=== PATIENT | female | born 1950 | race Caucasian/White ===

== ENCOUNTER → 2016-09-22 | Outpatient (CLI) | payer OTHER ==
[~2016-09-22] MED LIST: APPLTAB2 PO; ASPI81TA28 PO; B-COTAB18 PO; CALC-388 PO; CHOL20007 PO; CINN500T PO; COEN1CAP37 PO; CYCL10TA6 PO; DIGE1CAP10 PO; FURO-85 PO; IBUP-1451 PO; LINA1TAB PO; LVMIPEN SQ; METF500T5 PO; NVLGI/PEN SQ; NVLGIPEN SQ; OMEG120013 PO; OXYC-57 PO; POTA99TA PO
--- NOTE | 2016-09-22 12:48 | DIAGNOSTIC IMAGING REPORT ---
MRI OF THE CERVICAL SPINE WITHOUT CONTRAST CLINICAL HISTORY: Cervical pain with radiculopathy COMPARISON: None TECHNIQUE: Utilizing a 1.5 Mariaa magnet and dedicated coil, multiplanar, multiecho imaging of the cervical spine was performed without IV contrast. FINDINGS: Alignment of the cervical spine is anatomic. Vertebral body heights are maintained. There is no suspicious marrow replacement. There is no intracanalicular mass or fluid collection. There is a possible small focus of increased T2 signal within the right aspect of the cord at the C4-C5 level. Otherwise, cervical cord signal is normal. C2-C3: Central canal and neural foramen are patent. C3-C4: There is minimal disc bulge. Central canal and neural foramen are patent. C4-C5: There is mild posterior disc osteophyte complex with ligamentous hypertrophy. There is mild to moderate narrowing of the central canal. This slightly indents the ventral aspect of the cord. There is moderate to severe bilateral neural foraminal stenosis, slightly greater on the right. C5-C6: There is mild posterior disc osteophyte complex. There is mild narrowing of the central canal. Neural foramen are patent. C6-C7: There is mild posterior disc osteophyte complex with mild narrowing of the central canal. Neural foramen are patent. C7-T1: The central canal and neural foramen are patent. IMPRESSION: 1. Posterior disc osteophyte complex with mild to moderate central canal stenosis at C4-C5. Possible mild cord signal abnormality at this level which may reflect myelomalacia or less likely cord edema. 2. Mild central canal stenosis at C5-C6 and C6-C7. 3. Moderate to severe bilateral neural foraminal stenosis at C4-5. Electronically signed by: Stephen Francis M.D. 09/22/2016 12:46 PM Dictated Date/Time: 09/22/2016 12:34 PM
== END | disposition home or self-care (01) ==
LOC: C.MRI 11:38
PROVIDERS: ATTEND Orthopaedic Surgery Orthopaedic Surgery of the Spine
DX: M54.2 Cervicalgia (principal); M25.78 Osteophyte, vertebrae; M99.71 Connective tissue and disc stenosis of intervertebral foramina of cervical region

== ENCOUNTER 2016-10-31 05:19 | Inpatient (IN) | payer OTHER ==
[2016-10-16 12:17] VITALS: BMI 35.0
[~2016-10-31] VITALS: Ht 157.5 cm; Wt 132.0 kg
[2016-10-31] VITALS (18 sets, daily range): BP systolic 103–158; BP diastolic 67–88; PULSE 66–83; TEMP 36.2–37; O2SAT 93–99; BMI 53.0
[~2016-10-31 05:19] MED LIST changes: -OXYC-57 PO
[2016-10-31] MEDS ORDERED: CEFAZOLIN 2000 MG/60 ML D5W IV SCH (06:00)
[2016-10-31] MEDS ORDERED: LACTATED RINGER'S 1000ML 1,000 ML IV SCH (06:00)
[2016-10-31] MEDS ORDERED: PREGABALIN 75 MG CAP PO SCH (06:00)
[2016-10-31] MEDS ORDERED: CeleBREX 200 MG CAP PO SCH (06:00)
[2016-10-31] MEDS ORDERED: FENTANYL CITRATE INJ 50 MCG/1 ML 2 ML VIAL ONE ×2 (06:49→08:34)
[2016-10-31] MEDS ORDERED: MIDAZOLAM HCL 1 MG/ML 2ML VIAL ONE (06:49)
[2016-10-31] MEDS ORDERED: PROPOFOL IV EMULSION 10 MG/ML 100 ML VIAL IV ONE (06:53)
[2016-10-31] MEDS ORDERED: REMIFENTANIL 1 MG VIAL ONE ×2 (06:55→08:39)
[2016-10-31] MEDS ORDERED: CEFAZOLIN 3000 MG/65 ML D5W IV SCH (07:00)
[2016-10-31] MEDS ORDERED: BACITRACIN 50000 UNIT VIAL ONE (07:02)
[2016-10-31] MEDS ORDERED: THROMBIN 5000 UNITS KIT ONE (07:02)
--- NOTE | 2016-10-31 07:28 | History and Physical ---
History & Physical Date Oct 31, 2016. Chief Complaint neck pain and bilateral hand numbness. History of Present Illness The patient is a 65 year old female with complaints of above that are long standing with known cervical stenosis/myelomalacia and progressive numbness. 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 She has had longstanding symptoms and seen it deteriorate. she has weakness and loss of pump tester in L hand. Her balance has also started to diminish. She was seen by cardiology preop and was cleared by stress test for inducible ischemia 06/07. Past Medical/Surgical History CAD s/p cardiac cath GUILLE no CPAP diabetes type II OA hx TIA CTR Obesity hiatal hernia lumbar surgery hyster hernia repair helena Appy Additional History Hepatic Disease: No Endocrine Disorder: No Kidney Disease: No Hypertension: No Heart Disease: Yes Bleeding Tendencies: No Infectious Diseases: No Allergies Coded Allergies: Codeine (Verified Allergy, Mild, VOMITTING, 10/31/16) Dexamethasone (Verified Allergy, Mild, DIZZINESS, 10/31/16) Meperidine (Verified Allergy, Mild, VOMITTING, 10/31/16) Morphine (Verified Allergy, Mild, VOMITTING, 10/31/16) Chlorhexidine (Verified Adverse Reaction, Intermediate, RASH, ITCHY, ) Uncoded Allergies: TAPE (Allergy, Mild, RASH, 10/16/16) Home Medications Scheduled Apple Cider Vinegar-Green Tea- (Apple Cider Vinegar Plus), 2 CAP PO TID Aspirin (Aspirin Ec), 81 MG PO QAM B-Complex Vitamins (Vitamin B Complex), 1 TAB PO BID Calcium Carbonate-Vitamin D (Calcium + D3 600-200 mg-Unit), 1 TAB PO BID Cholecalciferol (Vitamin D3), 1 TAB PO BID Cinnamon (Cinnamon), 2,000 CAP PO BID Coenzyme Q10 (Ubidecarenone) (Co Q-10), 1 CAP PO QAM Digestive Enzymes (Digestive Enzyme), 1 CAP PO HS Furosemide (Lasix), 20 MG PO QPM Insulin Aspart (Novolog Flexpen), 28 UNIT SQ QPM Insulin Aspart (Novolog Flexpen), 18 UNIT SQ QAM Insulin Detemir (Levemir Flextouch), 50 UNIT SQ QPM Linagliptin (Tradjenta), 1 TAB PO QPM Metformin Hcl Er (Glucophage Er), 1,000 MG PO BID Henderson-3 Fatty Acids (Fish Oil), 1 CAP PO TID Potassium (Potassium), 1 TAB PO QPM Scheduled PRN Cyclobenzaprine Hcl (Flexeril), 10 MG PO HS PRN for Pain Ibuprofen Tab (Motrin), 800 MG PO TID PRN for Pain Physical Examination Skin: warm/dry Eyes: normal inspection, sclerae normal ENT: normal ENT inspection Head: normocephalic, atraumatic Neck: supple, trachea midline Respiratory/Chest: lungs clear, no respiratory distress Cardiovascular: regular rate, rhythm Extremities: normal inspection, normal range of motion Neurologic/Psych: alert, normal reflexes, oriented x 3 Addiitonal Comments: LUE demonstrates weakness in pump tester and wrist extension, she has decreased sensation to lt tch L hand stocking like, less so on right hand Diagnosis Cervical stenosis with myelomalacia C4-5 and cervical myelopathy with progressive symptoms Plan of Treatment C4-5 ACDF
[2016-10-31] MEDS ORDERED: EpHEDrine SULFATE INJ 50 MG/ML AMP IV PRN (08:00)
[2016-10-31] MEDS ORDERED: ATROPINE SULFATE 0.1 MG/ML 5ML SYR IV PRN (08:00)
[2016-10-31] MEDS ORDERED: PHENYLEPHRINE 100MCG/ML 5ML SYR IV PRN (08:00)
[2016-10-31] MEDS ORDERED: HYDROmorphone INJ 2 MG/ML SYR/VIAL IV PRN (08:00)
[2016-10-31] MEDS ORDERED: ONDANSETRON INJ 2 MG/ML 2 ML VIAL IV PRN (08:00)
[2016-10-31] MEDS ORDERED: HYDROmorphone INJ 2 MG/ML SYR/VIAL ONE (08:34)
[2016-10-31] MEDS ORDERED: ONDANSETRON INJ 2 MG/ML 2 ML VIAL ONE ×2 (08:54→10:39)
[2016-10-31] MEDS ORDERED: DEXAMETHASONE SOD INJ 4 MG/ML VIAL ONE (08:54)
[2016-10-31] MEDS ORDERED: LIDOCAINE HCL 2% 2 ML VIAL (20MG/ML) ONE (08:54)
[2016-10-31] MEDS ORDERED: PROPOFOL IV EMULSION 10 MG/ML 20 ML VIAL IV ONE (08:54)
[2016-10-31] MEDS ORDERED: RANITIDINE HCL 25 MG/ML INJ ONE (08:54)
[2016-10-31] MEDS ORDERED: SUCCINYLCHOLINE CHLORIDE 20 MG/ML 10 ML VIAL IV ONE (08:54)
[2016-10-31] MEDS ORDERED: FLOSEAL HEMOSTATIC MATRIX 5ML TOP ONE (09:06)
--- NOTE | 2016-10-31 09:38 | [facility] Post Operative Brief Note ---
Immediate Operative Summary Operative Date Oct 31, 2016. Pre-Operative Diagnosis Cervical stenosis with myelomalacia C4-5 and cervical myelopathy with progressive symptoms Post-Operative Diagnosis Cervical stenosis with myelomalacia C4-5 and cervical myelopathy with progressive symptoms Procedure(s) Performed C4-C5 Anterior Cervical Discectomy and Fusion, Peek, Allograft Surgeon Dr. Uli Saini [employer] Executive Surgeon(s) Savage Hidalgo PA-C Estimated Blood Loss 10 cc Findings dict Specimens None per surgeon
[2016-10-31] MEDS ORDERED: HYDROmorphone INJ 0.5 MG/0.5 ML SYR IV PRN (09:45)
[2016-10-31] MEDS ORDERED: ACETAMINOPHEN IV 1,000 MG in EMPTY BAG 0 ML IV PRN (09:45)
[2016-10-31] MEDS ORDERED: NALOXONE HCL 0.4 MG/1 ML VIAL/CARP IV PRN (09:45)
[2016-10-31] MEDS ORDERED: RACEPINEPHRINE 2.25% NEBU SOLN 0.5 ML VIAL INH PRN (09:45)
[2016-10-31] MEDS ORDERED: OXYCODONE/ACETAMINOPHEN 5-325 TAB PO PRN (09:45)
[2016-10-31] MEDS ORDERED: NovoLIN-R INSULIN PER UNIT CHARGE ONE (09:46)
--- NOTE | 2016-10-31 09:58 | DIAGNOSTIC IMAGING REPORT ---
CERVICAL 2 OR 3 VIEWS CLINICAL HISTORY: C4-C5 ANTERIOR CERVICAL DISCECTOMY/FUSION COMPARISON STUDY: MRI the cervical spine September 22, 2016. Fluoroscopy time: 7 seconds. FINDINGS: 2 intraoperative fluoroscopic images demonstrate a C4-C5 anterior discectomy and fusion. Hardware appears intact. There are no unexpected radiopaque foreign bodies. IMPRESSION: Expected findings following C4-C5 anterior discectomy and fusion. Electronically signed by: Stephen Francis M.D. 10/31/2016 9:56 AM Dictated Date/Time: 10/31/2016 9:55 AM
[2016-10-31] MEDS ORDERED: EpHEDrine SULFATE 50MG/5ML SYR ONE (10:39)
[2016-10-31] MEDS ORDERED: LABETALOL HCL IV 5 MG/ML 20ML IV ONE (10:39)
[2016-10-31] MEDS ORDERED: PHENYLEPHRINE 100MCG/ML 5ML SYR ONE (10:39)
--- NOTE | 2016-10-31 11:17 | Anesthesiology Progress Note ---
Anesthesia Post Op Note Date & Time Oct 31, 2016 at 11:17 Vital Signs Pain Intensity: 0 Vital Signs Past 12 Hours Date Time Temp Pulse Resp B/P Pulse Ox O2 Delivery O2 Flow Rate FiO2 10/31/16 10:46 77 20 96 10/31/16 10:46 77 20 10/31/16 10:45 157/87 10/31/16 10:41 76 19 10/31/16 10:41 76 19 96 10/31/16 10:40 157/82 10/31/16 10:36 78 18 93 10/31/16 10:36 78 18 10/31/16 10:35 153/82 10/31/16 10:33 77 19 10/31/16 10:33 76 19 95 10/31/16 10:30 153/92 10/31/16 10:28 79 20 10/31/16 10:28 79 20 94 10/31/16 10:25 165/88 10/31/16 10:23 78 18 10/31/16 10:23 78 18 97 10/31/16 10:20 156/83 10/31/16 10:18 81 22 10/31/16 10:18 82 22 96 10/31/16 10:17 79 22 97 10/31/16 10:17 79 22 10/31/16 10:15 157/84 10/31/16 10:14 36.0 81 21 157/84 97 Nasal Cannula 2 10/31/16 10:12 83 20 95 10/31/16 10:12 81 20 10/31/16 10:11 77 19 10/31/16 10:11 77 19 96 10/31/16 10:10 162/87 10/31/16 10:06 78 22 97 10/31/16 10:06 78 22 10/31/16 10:05 161/88 10/31/16 10:01 77 20 10/31/16 10:01 77 20 97 10/31/16 10:00 163/84 10/31/16 09:56 78 21 10/31/16 09:56 78 21 100 10/31/16 09:55 164/87 10/31/16 09:51 77 21 10/31/16 09:51 77 21 99 10/31/16 09:50 165/88 10/31/16 09:48 78 21 99 10/31/16 09:48 78 21 10/31/16 09:45 165/90 10/31/16 09:44 164/89 10/31/16 09:43 76 22 10/31/16 09:43 76 22 99 10/31/16 09:40 178/101 10/31/16 09:38 77 19 99 10/31/16 09:38 78 19 10/31/16 09:35 173/98 10/31/16 09:33 77 20 10/31/16 09:33 78 20 98 10/31/16 09:30 183/101 10/31/16 09:29 181/100 10/31/16 09:28 79 20 181/101 94 10/31/16 09:28 36.0 77 16 181/101 93 Mask 10 10/31/16 09:28 79 20 10/31/16 06:06 36.5 83 20 158/88 97 Room Air Notes Mental Status: alert / awake / arousable, participated in evaluation Pt Amnestic to Procedure: Yes Nausea / Vomiting: adequately controlled Pain: adequately controlled Airway Patency, RR, SpO2: stable & adequate BP & HR: stable & adequate Hydration State: stable & adequate Anesthetic Complications: no major complications apparent
[2016-10-31] MEDS ORDERED: ACETAMINOPHEN 500 MG TAB PO ONE (12:18)
[2016-10-31] MEDS: SODIUM CHLORIDE 0.9% 1000ML 1,000 ML IV SCH ×2 (12:35→23:30)
[2016-10-31] MEDS ORDERED: INFLUENZA VIRUS QUAD VACCINE 0.5 ML SYR IM. ONE (12:45)
[2016-10-31] MEDS ORDERED: INFLUENZA ADMINISTRATION CHARGE ONE (12:45)
[2016-10-31] MEDS ORDERED: HYDROmorphone INJ 1 MG/ML SYR IV PRN (12:45)
[2016-10-31] MEDS ORDERED: METOCLOPRAMIDE HCL INJ 5 MG/ML 2 ML VIAL IV PRN (13:00)
--- NOTE | 2016-10-31 13:05 | Medical Consult ---
Consultation Date of Consultation: Oct 31, 2016. Attending Physician: Uli Sosa M.D. Reason for Consultation: Medical Management History of Present Illness Patient is a 65 y.o F PMHx of GUILLE, morbid obesity and DMII who presented to [facility] on 10/31/16 for elective C4-C5 Anterior Cervical Discectomy and Fusion with Dr. Sosa. Patient had procedure without complications and transferred to medical floors. 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 Patient denies any chest pain, SOB, dizziness, abdominal pain. Patient dose state she has nausea and headache post-op. Social History Smoking Status: Never Smoker Allergies Coded Allergies: Codeine (Verified Allergy, Mild, VOMITTING, 10/31/16) Dexamethasone (Verified Allergy, Mild, DIZZINESS, 10/31/16) Adhesives (Verified Adverse Reaction, Intermediate, TAPE - RASH, 10/31/16) Chlorhexidine (Verified Adverse Reaction, Intermediate, RASH, ITCHY, ) Meperidine (Verified Adverse Reaction, Mild, VOMITING, 10/31/16) Morphine (Verified Adverse Reaction, Mild, VOMITING, 10/31/16) Current Inpatient Medications Current Inpatient Medications Medications (Trade) Dose Ordered Sig/Brandon Route Start Time Stop Time Status Last Admin Dose Admin Lactated Ringer's (Lr 1000ml) 1,000 ml @ 15 mls/hr Q24H IV 10/31/16 06:00 10/31/16 18:00 10/31/16 06:35 15 MLS/HR Celecoxib (CeleBREX CAP) 200 mg PREOP PO 10/31/16 06:00 10/31/16 18:00 10/31/16 06:38 200 MG Pregabalin 75 mg 75 mg PREOP PO 10/31/16 06:00 10/31/16 18:00 10/31/16 06:38 75 MG Cefazolin Sodium (Ancef 3000 Mg/ 65 ml D5W) 65 ml @ 100 mls/hr TODAY@0700 IV 10/31/16 07:00 11/01/16 06:59 Hydromorphone HCl (Dilaudid Inj) 0.5 mg Q5M PRN IV 10/31/16 08:00 10/31/16 13:00 Ondansetron HCl (Zofran Inj) 4 mg ONE PRN IV 10/31/16 08:00 10/31/16 13:00 Ephedrine Sulfate (EpHEDrine SULFATE INJ) 5 mg Q5M PRN IV 10/31/16 08:00 10/31/16 13:00 Atropine Sulfate (Atropine Sulfate 0.1MG/Ml Inj) 0.5 mg Q1M PRN IV 10/31/16 08:00 10/31/16 13:00 Phenylephrine HCl (David-Synephrine 500MCG/5ML Syr) 100 mcg Q5M PRN IV 10/31/16 08:00 10/31/16 13:00 Aspirin (Ecotrin Tab) 81 mg QAM PO 11/01/16 09:00 12/01/16 08:59 Furosemide (Lasix Tab) 20 mg QPM PO 10/31/16 21:00 11/30/16 20:59 Racepinephrine 0.5 ml 0.5 ml ONE PRN INH 10/31/16 09:45 11/30/16 09:44 Acetaminophen/ Empty Bag (Ofirmev Iv/ Empty Iv Bag 100ml) 100 ml @ 400 mls/hr Q8H PRN IV 10/31/16 09:45 11/30/16 09:44 10/31/16 12:33 400 MLS/HR Hydromorphone HCl (Dilaudid Inj) 0.5 mg Q3H PRN IV 10/31/16 09:45 11/14/16 09:44 Ondansetron HCl 4 mg 4 mg Q6 PRN IV 10/31/16 09:45 11/30/16 09:44 Cefazolin Sodium 1000 mg/Dextrose 55 ml @ 100 mls/hr Q8H IV 10/31/16 16:00 11/01/16 08:32 Sodium Chloride (Nss 1000ml) 1,000 ml @ 80 mls/hr [id number] IV 10/31/16 12:30 11/01/16 12:29 10/31/16 12:35 80 MLS/HR Oxycodone/ Acetaminophen (Percocet 5-325mg Tab) 1 tablet for pain scale ... Q4H PRN PO 10/31/16 09:45 11/14/16 09:44 Naloxone HCl (Narcan Inj) 0.1 mg Q5M PRN IV 10/31/16 09:45 11/30/16 09:44 Hydromorphone HCl (Dilaudid Inj) 1 mg Q3H PRN IV 10/31/16 12:45 11/14/16 12:44 Influenza Virus Vaccine Quadrival (Flu Vaccine) 0.5 ml ONCE ONCE IM. 10/31/16 12:45 10/31/16 12:46 UNV Review of Systems Constitutional: No chills, No fever Eyes: No worsening of vision ENT: No hearing loss Respiratory: No cough, No shortness of breath Cardiovascular: No chest pain, No edema Abdomen: + nausea, No constipation, No diarrhea, No pain, No vomiting Genitourinary - Female: No dysuria Neurologic: No memory loss Psychiatric: No depression symptoms Endocrine: No fatigue Hematologic / Lymphatic: No abnormal bleeding/bruising Integumentary: No itch, No rash Physical Exam Date Time Temp Pulse Resp B/P Pulse Ox O2 Delivery O2 Flow Rate FiO2 10/31/16 12:13 76 16 149/78 97 Nasal Cannula 2.0 10/31/16 11:50 76 16 99 Nasal Cannula 2.0 10/31/16 11:34 78 16 146/78 97 Nasal Cannula 2.5 10/31/16 11:15 Nasal Cannula Humidified Oxygen 10/31/16 11:15 98 Nasal Cannula 2.5 10/31/16 11:05 36.6 80 18 143/82 98 Nasal Cannula 2.5 10/31/16 10:46 77 20 96 10/31/16 10:46 77 20 10/31/16 10:45 157/87 10/31/16 10:41 76 19 10/31/16 10:41 76 19 96 10/31/16 10:40 157/82 10/31/16 10:36 78 18 93 10/31/16 10:36 78 18 10/31/16 10:35 153/82 10/31/16 10:33 77 19 10/31/16 10:33 76 19 95 10/31/16 10:30 153/92 10/31/16 10:28 79 20 10/31/16 10:28 79 20 94 10/31/16 10:25 165/88 10/31/16 10:23 78 18 10/31/16 10:23 78 18 97 10/31/16 10:20 156/83 10/31/16 10:18 81 22 10/31/16 10:18 82 22 96 10/31/16 10:17 79 22 97 10/31/16 10:17 79 22 10/31/16 10:15 157/84 10/31/16 10:14 36.0 81 21 157/84 97 Nasal Cannula 2 10/31/16 10:12 83 20 95 10/31/16 10:12 81 20 10/31/16 10:11 77 19 10/31/16 10:11 77 19 96 10/31/16 10:10 162/87 10/31/16 10:06 78 22 97 10/31/16 10:06 78 22 10/31/16 10:05 161/88 10/31/16 10:01 77 20 10/31/16 10:01 77 20 97 10/31/16 10:00 163/84 10/31/16 09:56 78 21 10/31/16 09:56 78 21 100 10/31/16 09:55 164/87 10/31/16 09:51 77 21 10/31/16 09:51 77 21 99 10/31/16 09:50 165/88 10/31/16 09:48 78 21 99 10/31/16 09:48 78 21 10/31/16 09:45 165/90 10/31/16 09:44 164/89 10/31/16 09:43 76 22 10/31/16 09:43 76 22 99 10/31/16 09:40 178/101 10/31/16 09:38 77 19 99 10/31/16 09:38 78 19 10/31/16 09:35 173/98 10/31/16 09:33 77 20 10/31/16 09:33 78 20 98 10/31/16 09:30 183/101 10/31/16 09:29 181/100 10/31/16 09:28 79 20 181/101 94 10/31/16 09:28 36.0 77 16 181/101 93 Mask 10 10/31/16 09:28 79 20 10/31/16 06:06 36.5 83 20 158/88 97 Room Air General Appearance: WD/WN, no apparent distress, + obese Head: normocephalic Eyes: normal inspection ENT: normal ENT inspection Neck: supple, no adenopathy Respiratory/Chest: chest non-tender, lungs clear Cardiovascular: regular rate, rhythm, no edema Abdomen/GI: normal bowel sounds, non tender, soft Back: normal inspection Extremities/Musculoskelatal: normal inspection Neurologic/Psych: sand drier II-XII nml as tested, no motor/sensory deficits, alert, oriented x 3 Skin: normal color, warm/dry Laboratory Results Last 24 Hours Test 10/31/16 05:45 10/31/16 05:47 10/31/16 09:36 10/31/16 10:10 Bedside Glucose 201 mg/dl 263 mg/dl 219 mg/dl Test 10/31/16 12:17 Bedside Glucose 283 mg/dl Assessment & Plan Patient is a 65 y.o F PMHx of GUILLE, morbid obesity and DMII who presented to [facility] on 10/31/16 for elective C4-C5 Anterior Cervical Discectomy and Fusion with Dr. Sosa. POD#0 s/p C4-C5 Anterior Cervical Discectomy and Fusion with Dr. Sosa. - pain control with tylenol and Dilaudid - d/c Dilaudid q5 min prn - bowel regimen - PT/OT - add reglan for post- op nausea Type 2 DMII - resume home novolog 18 u in am and levimir 50 u pm - consult pharmacy for glycemic control Morbid obesity - recommend outpatient nutrition follow up Hx of TIA -continue aspirin PPx- MELLY/SCD Thank you for the consult and we will continue to follow
[2016-10-31] MEDS ORDERED: PHARMACY GLYCEMIC MGMT CONSULT SCH (13:26)
[2016-10-31] MEDS ORDERED: GLUCAGON FOR INJ 1 MG VIAL SQ PRN (14:00)
[2016-10-31] MEDS ORDERED: GLUCOSE 40% GEL 15 GM TUBE PO PRN (14:00)
[2016-10-31] MEDS ORDERED: DEXTROSE 50% 50 ML SYR IV PRN (14:00)
[2016-10-31] MEDS ORDERED: GLUCOSE 10 TABS/TUBE PO PRN (14:00)
--- NOTE | 2016-10-31 14:14 | Pharmacy Progress Note ---
Glycemic Control Intl Consult Date of Service Oct 31, 2016. Scope Glycemic Pharmacist consulted by Dr Craven on 10/31/16 for glycemic control and to write orders per [facility] inpatient glycemic control protocol Objective Weight (Kilograms): 132.000 Accuchecks BSG (last 24hrs): Test 10/31/16 05:47 10/31/16 09:36 10/31/16 10:10 10/31/16 12:17 Bedside Glucose 201 mg/dl (70-90) 263 mg/dl (70-90) 219 mg/dl (70-90) 283 mg/dl (70-90) Recent Pertinent Medications Outpatient Anti-diabetic Regimen: * NovoLog * 14-18 units SQ in the morning(unsure per pt) * Levemir * 50 units SQ in the evening (usually with dinner) * Tradjenta * 5mg PO daily at noon * Metformin (unsure if IR or ER) * 1000mg PO BID * A1c is unknown at time of consultation The patient is currently receiving: * Levemir 50 units every 24 hours * NovoLog 18 units SQ q AM Risk Factors for Insulin Resistance: * Steroids: dexamethasone 8mg x1 dose intraoperatively * Infection: cefazolin perioperatively * Pressors: n/a * IVF: NSS * Recent Surgery: POD#0 cervical discectomy * Diet: Clear liquid Assessment & Plan ASSESSMENT: * ADA & AACE recommend a goal blood sugar range 140-180 mg/dl for the majority of critically ill & non-critically ill patients. However, more stringent targets may be selected in individual cases. Will utilize a lower goal range for more aggressive glycemic control postoperatively to help reduce risk of infection. 10/31/16 * POD#0 - received dexamethasone in OR * patient admits to poor glycemic control as an outpatient - will likely be insulin resistant secondary to this * Levemir administration confirmed on 10/30 with patient * bsgs remained elevated today prior to and during surgery - will continue home dose and titrate based on response * Levemir does have a shorter half life and may benefit from BID dosing? * NovoLog used once daily at home (likely with largest meal of the day) * convert to AC/HS dosing while admitted with both prandial and correctional components * assess home regimen prior to discharge for optimization of dosing * A1c - unknown at time of consultation * order with AM labs on 4/12/17 and add to discharge instructions PLAN FOR INPATIENT GLYCEMIC CONTROL: * Levemir 50 units SQ daily with dinner * NovoLog AC and HS * add overnight Accu-checks x24 hours postoperatively for improved glycemic control * Correction factor: 20mg/dL/unit * Carb ratio: 1 unit per 6 g of CHO consumed * Goal range: 110-140mg/dL as mentioned above * A1c - ordered with AM labs RECOMMENDATIONS FOR DISCHARGE: * awaiting A1c * Please note that the plan above was derived based on current level of insulin resistance and hospital stress. These recommendations are appropriate for inpatient admission only. Plan of care upon discharge will need to be reassessed to avoid potential outpatient hypo/hyperglycemia. Thank you.
--- NOTE | 2016-10-31 15:16 | OPERATIVE REPORT ---
DATE OF OPERATION: 10/31/2016 PREOPERATIVE DIAGNOSES: 1. C4-5 herniated nucleus pulposus and stenosis. 2. Cervical myelopathy. POSTOPERATIVE DIAGNOSIS: Same. PROCEDURES: 1. Anterior cervical discectomy and fusion with application of PEEK intervertebral spacer with local autograft and DBM putty C4-5. 2. Anterior cervical instrumentation C4-5 anterior cervical blades. SURGEON: Dr. Sosa. CARBON LAMP CLEANER: Richard Hidalgo PA-C. Please note he participated in all portions of the procedure and was critical for performance of procedure, participated in positioning, prepping, draping, retraction, and wound closure. ANESTHESIA: General endotracheal anesthesia. COMPLICATIONS: None. ESTIMATED BLOOD LOSS: Minimal. OPERATION AND FINDINGS: PROCEDURE: After identification of patient and operative level, she was brought to the OR where she underwent induction of general anesthesia. She was then positioned supine on Ron OR table with all bony prominences well padded. Arms tucked to sides and well padded. Shoulders taped distally. Care was taken to avoid pressure on the elbows. I then sterilely prepped and draped the anterior neck in a sterile fashion. Spinal cord monitoring signals were obtained. She had adequate signals and transverse skin incision was made on the right side of the neck at the level of the cricoid cartilage. I divided the platysma in line with the incision and performed routine anterior cervical exposure with blunt dissection, identified the presumptive disc space confirmed with fluoroscopy and marker and I marked it with electrocautery. I mobilized longus colli over the C4-C5 disc space and then placed a self-retaining cervical retractor deep to the longus colli. I then placed [place] pins in the body of C4 and C5 and applied slight distraction across the pins. I then did a complete discectomy at C4-5 and prepared disc space with curettes. I removed the posterior osteophytes with a adolfo. I then took down the posterior annulus and the PLL with Kerrisons. Osteophytes removed as well and spinal cord appeared free of compression. I then did foraminotomies as necessary, palpated the nerve roots were decompressed bilaterally into the neural foramina. I then decorticated the endplates with a high speed bur. I determined graft size with trial sizers and then filled a PEEK cage with local bone and DBM putty, tamped it into position and then released [place] distraction, removed the pins, applied bone wax over the holes and inserted LDR anterior cervical blade plates through the cage into the vertebral bodies of C4 and C5. I then irrigated with bacitracin solution, confirmed hemostasis, applied FloSeal as necessary and closed over a small round drain. All sponge and needle counts were correct at the end of the case. I attest to the content of the Intraoperative Record and any orders documented therein. Any exceptio ns are noted below.
[2016-10-31] MEDS: CEFAZOLIN IV 1,000 MG in DEXTROSE 5% 50ML 50 ML IV SCH ×2 (15:53→23:29)
[2016-10-31] MEDS ORDERED: INSULIN DETEMIR FLEXPEN/FLEX TOUCH 100 UNITS/ML 3ML SQ SCH (17:45)
[2016-10-31] MEDS: INSULIN ASPART 100 UNITS/ML 3 ML PEN SQ SCH ×2 (18:13→21:04)
[2016-10-31] MEDS: ONDANSETRON INJ 2 MG/ML 2 ML VIAL IV PRN (20:05)
[2016-10-31] MEDS ORDERED: FUROSEMIDE 20 MG TAB PO SCH (21:00)
[2016-11-01] VITALS (10 sets, daily range): BP systolic 115–155; BP diastolic 69–81; PULSE 65–80; TEMP 36.2–36.3; O2SAT 95–99; Ht 157.5 cm; Wt 132.0 kg
[2016-11-01] MEDS: INSULIN ASPART 100 UNITS/ML 3 ML PEN SQ SCH ×4 (00:01→12:54)
[2016-11-01] MEDS: ONDANSETRON INJ 2 MG/ML 2 ML VIAL IV PRN (02:01)
[2016-11-01 05:36] LABS: HEMATOCRIT 36.4 % (37-47); MEAN CELL VOLUME 92.9 fL (80-100); MEAN CORPUSCULAR HEMOGLOBIN 31.4 pg (25-34); MEAN CORPUSCULAR HGB CONC 33.8 g/dl (32-36); MEAN PLATELET VOLUME 10.8 fL (7.4-10.4); PLATELET COUNT 210 K/uL (130-400); RED BLOOD COUNT 3.92 M/uL (4.2-5.4); WHITE BLOOD COUNT 7.35 K/uL (4.8-10.8)
[2016-11-01 05:53] LABS: BUN/CREATININE RATIO 13.7 (10-20); CALCIUM 8.1 mg/dl (8.5-10.1); CREATININE 0.72 mg/dl (0.60-1.20); POTASSIUM 4.1 mmol/L (3.5-5.1)
[2016-11-01 06:27] LABS: ESTIMATED AVERAGE GLUCOSE 160 mg/dl; HA1C FLAG Normal (Normal)
[2016-11-01] MEDS: CEFAZOLIN IV 1,000 MG in DEXTROSE 5% 50ML 50 ML IV SCH (08:16)
--- NOTE | 2016-11-01 08:47 | Anesthesiology Progress Note ---
Anesthesia Post Op Note Date & Time Nov 01, 2016 at 08:45 Vital Signs Vital Signs Past 12 Hours Date Time Temp Pulse Resp B/P Pulse Ox O2 Delivery O2 Flow Rate FiO2 11/01/16 07:33 36.3 75 18 132/81 96 Room Air 11/01/16 07:30 Room Air 11/01/16 07:22 69 16 97 Nasal Cannula 2.0 69 11/01/16 06:00 99 Room Air 11/01/16 05:15 36.2 16 116/72 96 Nasal Cannula 2.0 Humidified Oxygen 11/01/16 03:54 65 14 97 Nasal Cannula 2.0 11/01/16 03:15 36.3 65 18 121/72 98 Nasal Cannula 2.0 Humidified Oxygen 11/01/16 01:15 36.2 69 16 115/69 95 Nasal Cannula 2.0 Humidified Oxygen 10/31/16 23:43 66 16 98 Nasal Cannula 2.0 10/31/16 23:15 36.2 68 16 103/67 99 Nasal Cannula 2.0 Humidified Oxygen 10/31/16 23:15 Nasal Cannula 2.0 Humidified Oxygen 10/31/16 20:59 36.6 66 20 125/69 97 Nasal Cannula 2.0 Humidified Oxygen 10/31/16 20:57 36.6 66 20 125/69 97 Nasal Cannula 2.0 Humidified Oxygen Notes Mental Status: alert / awake / arousable, participated in evaluation Pt Amnestic to Procedure: Yes Nausea / Vomiting: adequately controlled Pain: adequately controlled Airway Patency, RR, SpO2: stable & adequate (pt alert and denies any difficulty breathing and swallowing) BP & HR: stable & adequate Hydration State: stable & adequate Anesthetic Complications: no major complications apparent
[2016-11-01] MEDS ORDERED: ASPIRIN 81 MG ECTAB PO SCH (09:00)
--- NOTE | 2016-11-01 09:41 | Hospitalist Progress Note ---
Hospitalist Progress Note Date of Service Nov 01, 2016. Subjective Pt evaluation today including: conversation w/ patient Patient continues to complain of headache. States she gets nauseous and dizzy after receiving Dilaudid or Percocet. Constitutional: No fever Eyes: No worsening of vision ENT: No hearing loss Respiratory: No cough Cardiovascular: No chest pain Abdomen: + nausea, No diarrhea, No pain, No vomiting Musculoskeletal: + joint pain Objective Vital Signs Date Time Temp Pulse Resp B/P Pulse Ox O2 Delivery O2 Flow Rate FiO2 11/01/16 07:33 36.3 75 18 132/81 96 Room Air 11/01/16 07:30 Room Air 11/01/16 07:22 69 16 97 Nasal Cannula 2.0 69 11/01/16 06:00 99 Room Air 11/01/16 05:15 36.2 16 116/72 96 Nasal Cannula 2.0 Humidified Oxygen 11/01/16 03:54 65 14 97 Nasal Cannula 2.0 11/01/16 03:15 36.3 65 18 121/72 98 Nasal Cannula 2.0 Humidified Oxygen 11/01/16 01:15 36.2 69 16 115/69 95 Nasal Cannula 2.0 Humidified Oxygen 10/31/16 23:43 66 16 98 Nasal Cannula 2.0 10/31/16 23:15 36.2 68 16 103/67 99 Nasal Cannula 2.0 Humidified Oxygen 10/31/16 23:15 Nasal Cannula 2.0 Humidified Oxygen 10/31/16 20:59 36.6 66 20 125/69 97 Nasal Cannula 2.0 Humidified Oxygen 10/31/16 20:57 36.6 66 20 125/69 97 Nasal Cannula 2.0 Humidified Oxygen 10/31/16 19:39 74 16 95 Room Air 10/31/16 19:34 36.6 81 20 110/67 94 Room Air 82 10/31/16 19:26 36.6 17 110/67 97 Nasal Cannula 2.0 10/31/16 19:21 36.6 82 20 132/75 94 Room Air 10/31/16 17:34 37.0 76 18 113/68 94 Nasal Cannula 2.0 Humidified Oxygen 10/31/16 15:10 36.6 81 17 110/67 97 Nasal Cannula 2.0 10/31/16 15:09 77 16 96 Nasal Cannula 2.0 10/31/16 15:00 36.6 17 110/67 97 Nasal Cannula 2.0 10/31/16 15:00 97 Nasal Cannula 2.0 10/31/16 13:06 73 16 146/79 93 Room Air 10/31/16 12:13 76 16 149/78 97 Nasal Cannula 2.0 10/31/16 11:50 76 16 99 Nasal Cannula 2.0 10/31/16 11:34 78 16 146/78 97 Nasal Cannula 2.5 10/31/16 11:15 Nasal Cannula Humidified Oxygen 10/31/16 11:15 98 Nasal Cannula 2.5 10/31/16 11:05 36.6 80 18 143/82 98 Nasal Cannula 2.5 10/31/16 10:46 77 20 96 10/31/16 10:46 77 20 10/31/16 10:45 157/87 10/31/16 10:41 76 19 10/31/16 10:41 76 19 96 10/31/16 10:40 157/82 10/31/16 10:36 78 18 93 10/31/16 10:36 78 18 10/31/16 10:35 153/82 10/31/16 10:33 77 19 10/31/16 10:33 76 19 95 10/31/16 10:30 153/92 10/31/16 10:28 79 20 10/31/16 10:28 79 20 94 10/31/16 10:25 165/88 10/31/16 10:23 78 18 10/31/16 10:23 78 18 97 10/31/16 10:20 156/83 10/31/16 10:18 81 22 10/31/16 10:18 82 22 96 10/31/16 10:17 79 22 97 10/31/16 10:17 79 22 10/31/16 10:15 157/84 10/31/16 10:14 36.0 81 21 157/84 97 Nasal Cannula 2 10/31/16 10:12 83 20 95 10/31/16 10:12 81 20 10/31/16 10:11 77 19 10/31/16 10:11 77 19 96 10/31/16 10:10 162/87 10/31/16 10:06 78 22 97 10/31/16 10:06 78 22 10/31/16 10:05 161/88 10/31/16 10:01 77 20 10/31/16 10:01 77 20 97 10/31/16 10:00 163/84 10/31/16 09:56 78 21 10/31/16 09:56 78 21 100 10/31/16 09:55 164/87 10/31/16 09:51 77 21 10/31/16 09:51 77 21 99 10/31/16 09:50 165/88 10/31/16 09:48 78 21 99 10/31/16 09:48 78 21 10/31/16 09:45 165/90 10/31/16 09:44 164/89 10/31/16 09:43 76 22 10/31/16 09:43 76 22 99 10/31/16 09:40 178/101 10/31/16 09:38 77 19 99 10/31/16 09:38 78 19 10/31/16 09:35 173/98 Physical Exam General Appearance: WD/WN, no apparent distress, + obese Eyes: normal inspection ENT: normal ENT inspection Neck: supple, no adenopathy Respiratory/Chest: chest non-tender, lungs clear, + decreased breath sounds Cardiovascular: regular rate, rhythm, no edema Abdomen: normal bowel sounds, non tender Extremities: normal range of motion, non-tender 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, 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 Skin: normal color Laboratory Results Last 24 Hours Test 10/31/16 09:36 10/31/16 10:10 10/31/16 12:17 10/31/16 17:28 Bedside Glucose 263 mg/dl 219 mg/dl 283 mg/dl 303 mg/dl Test 10/31/16 20:35 10/31/16 23:54 11/01/16 04:18 11/01/16 04:45 Bedside Glucose 271 mg/dl 218 mg/dl 205 mg/dl White Blood Count 7.35 K/uL Red Blood Count 3.92 M/uL Hemoglobin 12.3 g/dL Hematocrit 36.4 % Mean Corpuscular Volume 92.9 fL Mean Corpuscular Hemoglobin 31.4 pg Mean Corpuscular Hemoglobin Concent 33.8 g/dl RDW Standard Deviation 46.7 fL RDW Coefficient of Variation 13.9 % Platelet Count 210 K/uL Mean Platelet Volume 10.8 fL Sodium Level 139 mmol/L Potassium Level 4.1 mmol/L Chloride Level 102 mmol/L Carbon Dioxide Level 31 mmol/L Anion Gap 6.0 mmol/L Blood Urea Nitrogen 10 mg/dl Creatinine 0.72 mg/dl Est Creatinine Clear Calc Drug Dose 99.2 ml/min Estimated GFR () 100.4 Estimated GFR (Non- 86.7 BUN/Creatinine Ratio 13.7 Random Glucose 218 mg/dl Estimated Average Glucose 160 mg/dl Hemoglobin A1c 7.2 % Calcium Level 8.1 mg/dl Test 11/01/16 08:06 Bedside Glucose 214 mg/dl Assessment and Plan Patient is a 65 y.o F PMHx of GUILLE, morbid obesity and DMII who presented to [facility] on 10/31/16 for elective C4-C5 Anterior Cervical Discectomy and Fusion with Dr. Sosa. POD#1 s/p C4-C5 Anterior Cervical Discectomy and Fusion with Dr. Sosa. - pain control with tylenol - d/c Dilaudid and percocet as I believe patient has allergies to opiates - start tordol - bowel regimen - PT/OT Type 2 DMII - cont home novolog 18 u in am and levimir 50 u pm - consult pharmacy for glycemic control Morbid obesity - recommend outpatient nutrition follow up Hx of TIA -continue aspirin PPx- MELLY/SCD
[2016-11-01] MEDS ORDERED: KETOROLAC TROMETHAMINE 15 MG/ML VIAL IV. PRN (09:45)
[2016-11-01] MEDS ORDERED: OXYC-57 PO (10:41)
--- NOTE | 2016-11-01 10:42 | Discharge Instructions ---
Discharge Instructions Date of Service Nov 01, 2016. Admission Reason for Admission: Cervical Spinal Stenosis Discharge Discharge Diagnosis / Problem: same Discharge Goals Goal(s): Decrease discomfort Activity Recommendations Activity Limitations: per Instructions/Follow-up section . Instructions / Follow-Up Instructions / Follow-Up ACTIVITY RECOMMENDATIONS: SELF CARE INSTRUCTIONS AFTER CERVICAL FUSIONS 1. No smoking. Smoking drastically decreases the chance of a solid fusion. 2. No bending, lifting more than 5 pounds, or twisting (roll like a log when turning in bed). 3. You may shower 3 days after surgery. Thoroughly dry wound. Do not soak in the tub. 4. Cervical collar: Must be worn at all times including sleeping. You may remove the brace only to bath, eat and if you are sitting in a recliner. 5. Please walk as much as you can for exercise. Gradually increase the distance that you walk as your endurance increases. SPECIAL CARE INSTRUCTIONS: VERY IMPORTANT TO READ AND REVIEW A. Do not take any anti-inflammatory medications (i.e. Indocin, Advil, Aspirin, Naprosyn, Aleve, Motrin, etc.) as these may inhibit the chance of a solid fusion. Tylenol is okay to take. B. Your surgical incision has been closed with a cosmetic suture under the skin that will dissolve in about 6 weeks. In 14 days, you can use a pair of clean scissors and cut the suture that is left outside of the skin at the ends of your incision. C. Complications are uncommon, but please contact us if you have any signs or symptoms of: 1. wound infection (fever higher than 102.5 degrees F, redness, separation of wound, drainage, or increasing pain from the incision) 2. blood clots in legs (pain, swelling, redness and warmth in legs) 3. urinary tract infection (fever higher than 102.5 degrees, burning upon urination or increased frequency of urination) 4. nerve problems (inability to walk on your toes or heels, numbness, loss of bowel or bladder control) 5. any other symptoms that concern you. D. Please call the office at if you have any concerns or questions about your operation or recovery. MANAGING PAIN AFTER SPINAL SURGERY 1. Narcotic medication is intended for short-term use and will be provided for surgical pain. Surgical pain usually lasts for a period of 4-6 weeks. Narcotic medication includes Percocet, Vicodin, Darvocet, Tylenol #3 or Lortab. 2. Longer-term pain is more appropriately treated with non-narcotic medication such as Tylenol ES. 3. Muscle spasm is not appropriately treated with narcotics. Muscle relaxers such as Soma, Flexeril or Skelaxin can be used along with Tylenol ES. 4. Remember that we all live with some "aches and pains". This is not unusual or uncommon after an injury or as we get older. 5. We will provide appropriate medication within the normal guidelines of their prescribed use. We will also be very cautious and aware of potential abuse and extended duration of patients' medication needs. 6. Please allow 2-3 days to process refills. Prescriptions will not be mailed but must be picked up at the office. FOLLOW UP VISIT: Keep your scheduled follow-up appointment. Any questions, please call the office at . Current Hospital Diet Patient's current hospital diet: Clear Liquid Diet, Diabetes Type 2 Diet Discharge Diet Recommended Diet: Regular Diet Procedures Procedures Performed: C4-C5 Anterior Cervical Discectomy and Fusion, Peek, Allograft Pending Studies Studies pending at discharge: no Laboratory Results Hemoglobin A1c Test 11/01/16 04:45 Range/Units Estimated Average Glucose 160 mg/dl Hemoglobin A1c 7.2 H 4.5-5.6 % Medical Emergencies . Who to Call and When: Medical Emergencies: If at any time you feel your situation is an emergency, please call 911 immediately. . Non-Emergent Contact Non-Emergency issues call your: Surgeon . "Provider Documentation" section prepared by Uli Sosa. VTE Core Measure Inpt VTE Proph given/why not?: SCD's [place] Drug Monitoring Program Search Results: patient reviewed within database, no issues identified
--- NOTE | 2016-11-01 10:43 | Orthopedic Progress Note ---
Orthopedic Progress Note Date of Service Nov 01, 2016. Subjective Post OP Day: 1 Reports: feeling well, pain controlled w PO medications, Denies: SOB, calf pain , chest pain, complaints, light headedness, nausea / vomiting, using [employer]LECT[employer]IC[employer] BUS Objective calves soft nontender, N/V intact, dressing C/D/I, A&O x3, hemovac drainage Date Time Temp Pulse Resp B/P Pulse Ox O2 Delivery O2 Flow Rate FiO2 11/01/16 07:33 36.3 75 18 132/81 96 Room Air 11/01/16 07:30 Room Air 11/01/16 07:22 69 16 97 Nasal Cannula 2.0 69 11/01/16 06:00 99 Room Air 11/01/16 05:15 36.2 16 116/72 96 Nasal Cannula 2.0 Humidified Oxygen 11/01/16 03:54 65 14 97 Nasal Cannula 2.0 11/01/16 03:15 36.3 65 18 121/72 98 Nasal Cannula 2.0 Humidified Oxygen 11/01/16 01:15 36.2 69 16 115/69 95 Nasal Cannula 2.0 Humidified Oxygen 10/31/16 23:43 66 16 98 Nasal Cannula 2.0 10/31/16 23:15 36.2 68 16 103/67 99 Nasal Cannula 2.0 Humidified Oxygen 10/31/16 23:15 Nasal Cannula 2.0 Humidified Oxygen 10/31/16 20:59 36.6 66 20 125/69 97 Nasal Cannula 2.0 Humidified Oxygen 10/31/16 20:57 36.6 66 20 125/69 97 Nasal Cannula 2.0 Humidified Oxygen 10/31/16 19:39 74 16 95 Room Air 10/31/16 19:34 36.6 81 20 110/67 94 Room Air 82 10/31/16 19:26 36.6 17 110/67 97 Nasal Cannula 2.0 10/31/16 19:21 36.6 82 20 132/75 94 Room Air 10/31/16 17:34 37.0 76 18 113/68 94 Nasal Cannula 2.0 Humidified Oxygen 10/31/16 15:10 36.6 81 17 110/67 97 Nasal Cannula 2.0 10/31/16 15:09 77 16 96 Nasal Cannula 2.0 10/31/16 15:00 36.6 17 110/67 97 Nasal Cannula 2.0 10/31/16 15:00 97 Nasal Cannula 2.0 10/31/16 13:06 73 16 146/79 93 Room Air 10/31/16 12:13 76 16 149/78 97 Nasal Cannula 2.0 10/31/16 11:50 76 16 99 Nasal Cannula 2.0 10/31/16 11:34 78 16 146/78 97 Nasal Cannula 2.5 10/31/16 11:15 Nasal Cannula Humidified Oxygen 10/31/16 11:15 98 Nasal Cannula 2.5 10/31/16 11:05 36.6 80 18 143/82 98 Nasal Cannula 2.5 10/31/16 10:46 77 20 96 10/31/16 10:46 77 20 10/31/16 10:45 157/87 Laboratory Results 24 Hours: Test 11/01/16 04:45 Hematocrit 36.4 % Hemoglobin 12.3 g/dL Assessment & Plan Assessment: doing well, preop numbness in L UE resolved, lópez diet Plan: d/c home Discharge Planning Discharge Planning: home
--- NOTE | 2016-11-14 09:34 | Discharge Summary ---
Orthopedic Discharge Summary Admission Date/Reason Oct 31, 2016 at 07:15 Cervical Spinal Stenosis. Discharge Date/Disposition Nov 01, 2016 Home Diagnosis Principal Diagnosis: same Medication Reconciliation New Medications: Oxycodone/Acetaminophen 5MG/325MG (Percocet 5MG/325MG) Tab 1 TABLET PO Q6H PRN for Pain, #60 TAB Continued Medications: Apple Cider Vinegar-Green Tea- (Apple Cider Vinegar Plus) 1 Tab Tab 2 CAP PO TID Aspirin (Aspirin Ec) 81 Mg Tab 81 MG PO QAM INSTRUCTED PT TO CALL SURGEON FOR DIRECTIONS B-Complex Vitamins (Vitamin B Complex) 1 Tab Tab 1 TAB PO BID Calcium Carbonate-Vitamin D (Calcium + D3 600-200 mg-Unit) 1 Tab Tab 1 TAB PO BID Cholecalciferol (Vitamin D3) 2,000 Unit Tab 1 TAB PO BID Cinnamon (Cinnamon) 500 Mg Tab 2000 CAP PO BID Coenzyme Q10 (Ubidecarenone) (Co Q-10) 200 Mg Cap 1 CAP PO QAM Cyclobenzaprine Hcl (Flexeril) 10 Mg Tab 10 MG PO HS PRN for Pain Digestive Enzymes (Digestive Enzyme) 1 Cap Cap 1 CAP PO HS Furosemide (Lasix) 20 Mg Tab 20 MG PO QPM, TAB Insulin Aspart (Novolog Flexpen) 100 Units/Ml Inj 28 UNIT SQ QPM Insulin Aspart (Novolog Flexpen) 100 Units/Ml Inj 18 UNIT SQ QAM Insulin Detemir (Levemir Flextouch) 100 Unit/Ml Inj 50 UNIT SQ QPM Linagliptin (Tradjenta) 5 Mg Tab 1 TAB PO QPM TAKES AT NOON Metformin Hcl Er (Glucophage Er) 500 Mg Tab 1000 MG PO BID, TAB [place]-3 Fatty Acids (Fish Oil) 1,200 Mg Cap 1 CAP PO TID Potassium (Potassium) 99 Mg Tab 1 TAB PO QPM TAKES AT NOON Discontinued Medications: Ibuprofen Tab (Motrin) 800 Mg Tab 800 MG PO TID PRN for Pain Admission Physical Exam As per Admitting History & Physical. Hospital Course She was admitted for elective cervical surgery and underwent the procedure without complications. She was stable and ambulatory POD 1 and had her pain controlled. she was discharged in stable condition. Discharge Instructions Please refer to the electronic Patient Visit Report (Discharge Instructions) for additional information.
== END 2016-11-01 13:29 | disposition home or self-care (01) | DRG 472 ==
LOC: ENRESERVTM → ENRESERVDT → C.ACU 05:19 → C.3E 07:15
PROVIDERS: ADMIT Orthopaedic Surgery Orthopaedic Surgery of the Spine; ATTEND Orthopaedic Surgery Orthopaedic Surgery of the Spine
PROC: 0RG10A0 Fusion of Cervical Vertebral Joint with Interbody Fusion Device, Anterior Approach, Anterior Column, Open Approach (ICD-10-PCS; principal; 2016-10-31 07:30)
PROC: 0RT30ZZ Resection of Cervical Vertebral Disc, Open Approach (ICD-10-PCS; principal; 2016-10-31 07:30)
DX: M48.02 Spinal stenosis, cervical region (principal); G95.89 Other specified diseases of spinal cord; M50.021 Cervical disc disorder at C4-C5 level with myelopathy; R20.0 Anesthesia of skin; R11.0 Nausea; R42 Dizziness and giddiness; T40.2X5A Adverse effect of other opioids, initial encounter; I25.10 Atherosclerotic heart disease of native coronary artery without angina pectoris; E11.9 Type 2 diabetes mellitus without complications; M19.90 Unspecified osteoarthritis, unspecified site; G47.33 Obstructive sleep apnea (adult) (pediatric); E66.01 Morbid (severe) obesity due to excess calories; Z68.35 Body mass index [BMI] 35.0-35.9, adult; Z86.73 Personal history of transient ischemic attack (TIA), and cerebral infarction without residual deficits; Z79.4 Long term (current) use of insulin; Z79.84 Long term (current) use of oral hypoglycemic drugs; Z79.82 Long term (current) use of aspirin; Z79.899 Other long term (current) drug therapy